=== PATIENT | female | born 2000 | race Caucasian/White ===

== ENCOUNTER 2022-09-29 10:27 | Emergency (ER) | payer BC, MEDICAID, SELFPAY ==
[2022-09-29 10:31] VITALS: BP 110/88; PULSE 85; RESP 17; TEMP 37.1; O2SAT 100
[2022-09-29 10:36] VITALS: O2SAT 100
--- NOTE | 2022-09-29 10:43 | PC.NURSE ---
erp at bedside for initial assessment.
--- NOTE | 2022-09-29 10:59 | ED.GENADULT ---
HPI - General Adult General Chief complaint: Upper Respiratory Infection Stated complaint: vomiting Time Seen by Provider: 09/29/22 10:30 Source: patient and family Mode of arrival: ambulatory Limitations: no limitations History of Present Illness HPI narrative: 22-year-old white female with head cold and congestion that started 5 days ago nonproductive cough nasal congestion started throwing up yesterday green liquid. Last threw up this morning. She went to the clinic they said that they could give her any fluids there so they sent her to the emergency department. She has no other significant past medical history. Walking talking seeing and hearing fine. She has felt a little dizzy lightheaded when she stands up. Denies any pain rash itching bleeding or bruising lumps or bumps. Denies any shortness of breath she has had a nonproductive cough. Denies any other complain Past medical history mother says she has got a little weak stomach. Related Data Allergies Allergy/AdvReac Type Severity Reaction Status Date / Time No Known Allergies Allergy Unknown Unverified 09/29/22 10:31 Review of Systems Review of Systems: All systems reviewed & are unremarkable except as noted in HPI and below Exam Narrative: White patient no apparent distress.? Head normocephalic, atraumatic.? Eyes conjunctiva pink sclera nonicteric.? Extraocular movements are intact.? Ears externally normal.? Oropharynx is clear with moist mucous membranes without exudates.? Neck is supple nontender no lymphadenopathy.? Back is nontender.? Lungs are clear.? Heart is regular rate and rhythm without murmurs gallops or rubs.? Chest wall is nontender.? Abdomen is soft and nontender no hepatosplenomegaly or masses no CVA tenderness no abdominal bruits.? Extremities no cyanosis clubbing or edema.? Skin is warm and dry without rashes or lesions.? Neurological patient is alert and oriented x4.? Motor and sensory grossly intact.? Gait is normal. Course Vital Signs Vital signs: Vital Signs Temperature 37.1 C 09/29/22 10:31 Pulse Rate 85 09/29/22 10:31 Respiratory Rate 17 09/29/22 10:31 Blood Pressure 110/88 09/29/22 10:31 Pulse Oximetry 100 09/29/22 10:31 Oxygen Delivery Room Air 09/29/22 10:31 Temperature 37.1 C 09/29/22 10:31 Pulse Rate 85 09/29/22 10:31 Respiratory Rate 17 09/29/22 10:31 Blood Pressure 110/88 09/29/22 10:31 Pulse Oximetry 100 09/29/22 10:36 Oxygen Delivery Room Air 09/29/22 10:36 Medical Decision Making MDM Narrative Medical decision making narrative: patient was placed in room 2 history and physical were obtained with her mother present. IV was started she was given a L of normal saline Zofran 4 mg IV she got quite a bit a relief with this. test was negative wbc's is 16+ H&H was unremarkable CMP was unremarkable. Negative flu RSV and COVID Independent Historian: ? Mother Differential Dx includes but not limited to: COVID RSV flu viral upper respiratory infection nausea vomiting electrolyte imbalance Medications were Reviewed:? none? Medications treatments given: Zofran 4 mg IV Tylenol 650 p.o. and 1 L of normal saline: feels much better no headache no nausea she is hungry now Independently Interpreted by me:? ? labs are independently interpreted by me.? External Source Review:?? Medical conditions/social Situation Impacting Patients Care:?? Shared decision Making:? evaluation discussed with patient and mother all questions were asked and answered and they agree with plan. ? Clinical impression:? URI nausea vomiting? ? Patient disposition: ? discharge home ? Condition at discharge: stable Vital Signs Vital Signs: Vital Signs Temperature 37.1 C 09/29/22 10:31 Pulse Rate 85 09/29/22 10:31 Respiratory Rate 17 09/29/22 10:31 Blood Pressure 110/88 09/29/22 10:31 Pulse Oximetry 100 09/29/22 10:31 Oxygen Delivery Room Air 09/29/22 10:31 Temperat
[2022-09-29] MEDS: ONDANSETRON INJ 4 MG/2 ML VIAL IV PUSH (11:11)
[2022-09-29] MEDS: ACETAMINOPHEN 325 MG TABLET 650 MG PO (11:11)
[2022-09-29] MEDS: SODIUM CHLORIDE 0.9% IV 1,000 ML 999 ML IV CONT (11:12)
[2022-09-29 11:16] LABS: Influenza A QL RT-PCR Negative (Negative); Influenza B QL RT-PCR Negative (Negative); SARS-CoV-2 RNA PCR Negative (Negative)
[2022-09-29 11:17] LABS: RSV RNA, RT-PCR Negative (Negative)
[2022-09-29 11:22] LABS: Hematocrit 36.2 % (35.0-49.0); Hemoglobin 12.6 g/dL (12.0-15.0); Mean Corpuscular HGB Conc 34.8 g/dL (32.0-36.0); Mean Corpuscular Hemoglobin 32.4 pg (27.0-31.0); Mean Corpuscular Volume 93.1 fL (78.0-102.0); Mean Platelet Volume 8.7 fl (9.2-11.8); Platelet Count Result 297 K/mm3 (150-420); Red Blood Count 3.89 M/mm3 (4.20-5.40); Red Cell Distribution Width 12.2 % (11.6-14.4); White Blood Count 16.1 K/mm3 (4.8-10.8)
[2022-09-29 11:37] LABS: SPREG INTERNAL CONTROL Positive; Serum Qual hCG Negative
[2022-09-29 11:47] LABS: Alanine Aminotransferase 12 U/L (14-59); Alkaline Phosphatase 76 U/L (46-116); Anion Gap 12 mmol/L (8-16); Aspartate Amino Transferase 10 U/L (15-37); Bilirubin,Total 0.8 mg/dL (0.00-1.00); Blood Urea Nitrogen 15 mg/dL (7-18); Calcium 9.3 mg/dL (8.5-10.1); Carbon Dioxide 25 mmol/L (21-32); Chloride 100 mmol/L (98-108); Estimated Glomerular Filt Rate > 60; Glucose 80 mg/dL (70-99); Magnesium 1.8 mg/dL (1.8-2.4); Osmolality Calculated 283 mOsm/kg (285-295); Potassium 3.7 mmol/L (3.5-5.1); Sodium 137 mmol/L (136-145); Total Protein 7.7 g/dL (6.4-8.2)
[2022-09-29 12:43] VITALS: BP 99/54; PULSE 69; RESP 12; TEMP 36.7; O2SAT 100
== END 2022-09-29 12:43 | disposition home or self-care (01) ==
PROVIDERS: Emergency Provider Emergency Medicine; PCP Physician Assistant
DX: J06.9 Acute upper respiratory infection, unspecified (principal); R11.2 Nausea with vomiting, unspecified; Z20.822 Contact with and (suspected) exposure to COVID-19
CPT/HCPCS: 36415; 80053; 83735; 84703; 85027; 87637; 96361; 96374; 99284; A9270; J2405; J7030